=== PATIENT | female | born 1995 | race Caucasian/White ===

== ENCOUNTER 2022-09-08 22:46 | Inpatient (IN) | payer MEDICAID, SELFPAY ==
[2022-09-08 22:23] VITALS: BP 142/93; PULSE 106; TEMP 36.8
[2022-09-08 22:34] VITALS: RESP 16; BMI 34.2
[2022-09-08 22:37] VITALS: RESP 16
[2022-09-08 22:38] VITALS: BP 144/95; PULSE 110
[2022-09-08 22:55] LABS: Basophils # 0.1 10^3/uL (0.0-0.1); Basophils % 0.3 %; Eosinophils # 0.1 10^3/uL (0.0-0.8); Eosinophils % 0.5 %; Hematocrit 36.5 % (37.0-47.0); Hemoglobin 12.2 g/dL (11.5-15.3); Lymphocytes # 2.5 10^3/uL (0.8-4.8); Lymphocytes % 16.8 %; Mean Corpuscular HGB Conc 33.4 g/dL (30.0-36.0); Mean Corpuscular Hemoglobin 29.8 pg (28.0-34.0); Mean Platelet Volume 9.5 fL (7.4-10.4); Monocytes # 1.2 10^3/uL (0.2-0.9); Monocytes % 7.9 %; Neutrophils # 10.93 10^3/uL (1.8-7.7); Neutrophils % 74.2 %; Nucleated Red Blood Cells % 0 %; Platelet Count 488 10^3/cmm (130-400); Red Cell Distribution Width 12.5 % (12.1-15.1); White Blood Count 14.7 10^3/uL (4.0-10.0)
--- NOTE | 2022-09-08 23:52 | PM.OPHPUD ---
Labor & Delivery H&P Update Date of Procedure: September 08, 2022 Date H&P Performed: 09/08/22 Admission Diagnosis:
--- NOTE | 2022-09-08 23:53 | PM.DELIVERY ---
Delivery Note: Date of delivery: September 08, 2022 Pre-Delivery Course: The patient had routine care at [facility]. There were no complications during the . Delivery: This is a 27-year-old G3, P2 at 40 weeks 4 days gestation who presented to labor and delivery in active labor. I received an initial call at 4 stating the patient had arrived complaining of contractions every 4 minutes with a cervical exam of 5/70/ BBOW. The patient did not want any unnecessary medical interventions, however I recommended IV placement in case of emergency. She was also known to be GBS positive and stated she did not want to have antibiotics. This was news to me. I told nursing that I strongly urged her to receive the antibiotics for babies benefit. She ended up progressing rapidly and did not have any time to even receive the antibiotics because by 2308 she was complete and pushing. She had already delivered and the infant was on mother's chest with the cord intact by the time I arrived. Apgars were 7 and 8. The cord was clamped and cut. The placenta was delivered grossly intact and normal to inspection. There were no vaginal lacerations. Rupture of membranes was less than 5 minutes prior to delivery with clear fluid. Mother and infant were doing well after delivery. Coding Level of Care Code Acute Code for Chg Fwd
[2022-09-09] VITALS (14 sets, daily range): BP systolic 122–145; BP diastolic 58–88; PULSE 81–101; RESP 15–18; TEMP 36.7–37.3; O2SAT 98
--- NOTE | 2022-09-09 02:47 | PC.NURSE ---
Pt refused Pitocin after delivery of placenta.
[2022-09-09 11:27] LABS: Hematocrit 32.9 % (37.0-47.0); Hemoglobin 11.2 g/dL (11.5-15.3); Mean Corpuscular Hemoglobin 30.4 pg (28.0-34.0); Mean Corpuscular Volume 89.4 fl (81-99); Mean Platelet Volume 9.6 fL (7.4-10.4); Platelet Count 467 10^3/cmm (130-400); Red Blood Count 3.68 10^6/uL (4.1-5.3); Red Cell Distribution Width 12.6 % (12.1-15.1); White Blood Count 14.2 10^3/uL (4.0-10.0)
--- NOTE | 2022-09-09 17:40 | PM.PN ---
Subjective Subjective: The patient is doing well, she has average bleeding, she denies any significant pain. Vitals/I&O/Wt Last Vital Signs Temp 99.2 F 09/09/22 16:00 Pulse 101 H 09/09/22 16:00 Resp 15 09/09/22 16:00 BP 137/88 09/09/22 16:00 O2 Del Method Room Air 09/08/22 22:36 Weight last 48 hrs Weight 79.379 kg Physical Exam Narrative: Alert and oriented sitting up in bed, heart regular rate and rhythm, lungs clear to auscultation bilaterally, abdomen is soft and nontender, fundus is firm, extremities have no calf tenderness and no edema Data 09/09/22 11:00 A&P Assessment and plan (1) Normal spontaneous vaginal delivery: day #1 doing well. Patient's lost insurance coverage so he is no longer able to get his vasectomy. She does desire to therefore go ahead with for her tubal ligation. This has been planned for tomorrow morning Attestations Medical Necessity Statement*: Routine care Coding Level of Care Code Acute Code for Chg Fwd Diagnoses Normal spontaneous vaginal delivery O80
[2022-09-10 04:04] VITALS: BP 107/68; PULSE 90; RESP 17; TEMP 36.7; O2SAT 97
[2022-09-10] MEDS: lactated ringers 1,000 ML 999 ML IV (06:15)
[2022-09-10] MEDS: ceFAZolin 2,000 MG in sodium chloride 0.9% (plus) 50 ML 100 MG IV (06:15)
[2022-09-10] MEDS: famotidine 20 mg/2 mL INJ IVP (06:37)
[2022-09-10] MEDS: citric acid-sodium citrate 30 mL UDC PO (06:37)
[2022-09-10] MEDS: metoclopramide 5 mg/mL SDV 2 mL 10 MG IVP (06:38)
[2022-09-10] MEDS: lidocaine-epi 1% 20 mL INJ INJECTION (06:38)
--- NOTE | 2022-09-10 07:22 | ANES.PREANE2 ---
Pre-Anesthetic Assessment Height/Weight: Height 1.52 m Weight 79.379 kg Temp Pulse Resp BP Pulse Ox O2 Del Method 98.1 F 90 17 107/68 97 Room Air 09/10/22 04:04 09/10/22 04:04 09/10/22 04:04 09/10/22 04:04 09/10/22 04:04 09/10/22 04:04 Preop Diagnosis: Undesired fertility Operation Date: 09/10/22 07:10 Proposed Procedures p Post Bilateral Tubal Ligation(Bilateral) - Lucille Garcia MD Was Beta Rasta taken within 24 hours: N/A Was Clonidine taken within 24 hours: N/A Last intake: Intake Last Liquid Date 09/09/22 Last Liquid Time 22:00 Last Solid Date 09/09/22 Last Solid Time 22:00 Social No alcohol and No tobacco Exam alert, oriented x 3, clear to auscultation bilaterally and regular rate & rhythm Airway Submandibular: within normal limits Cervical ROM: within normal limits Mallampati: Class II Dentition: full History/ROS No significant history except as noted and No significant complaints Pulmonary None reported CV/HEM None reported None reported Hepatic None reported GI None reported Metabolic None reported Musc/skel None reported Neuropsych None reported Anesthetic Plan ASA status: 2 Anesthesia: Anesthesia Evaluation and General Risk of > 500 ml blood loss (7ml/kg in children): No Medications/Allergies Home Medications Medication Instructions Recorded Confirmed Last Taken Type prenat.vits,gladys,fyt-pphl-zfyqz 1 tab PO DAILY 09/08/22 09/08/22 09/08/22 History Allergies Allergy/AdvReac Type Severity Reaction Status Date / Time No Known Allergies Allergy Verified 09/08/22 22:41 Current Medications Generic Name Dose Route Start Last Admin Trade Name Freq PRN Reason Stop Dose Admin Docusate Sodium 100 mg 09/09/22 09:00 09/09/22 21:14 Docusate Sodium 100 Mg Capsule PO Not Given BID ELENO Ibuprofen 800 mg 09/09/22 09:00 09/09/22 21:14 Ibuprofen 800 Mg Tablet PO Not Given TID ELENO Multivit/Folic Acid/Iron 1 cap 09/09/22 09:00 09/09/22 09:57 Vitamin Capsule PO Not Given DAILY ELENO PFSH Anesthesia Female Reproductive History : 3 Data Anesthesia 09/09/22 11:00 Short CBC 04/11/23 04/12/23 Range/Units 22:40 11:00 WBC 14.7 H 14.2 H (4.0-10.0) 10^3/uL Hgb 12.2 11.2 L (11.5-15.3) g/dL Hct 36.5 L 32.9 L (37.0-47.0) % MCV 89.0 89.4 (81-99) fl Plt Count 488 H 467 H (130-400) 10^3/cmm Neut % (Auto) 74.2 % Neut # (Auto) 10.93 H (1.8-7.7) 10^3/uL Cardiac Studies: No Data to Display
--- NOTE | 2022-09-10 07:30 | PC.NURSE ---
Shyanne Cardenas, RN answered pt call light and pt reports she wants to cancel her tubal ligation. Dr. Garcia talked with pt and pt is going to get a vasectomy.
[2022-09-10 10:00] VITALS: BP 125/76; PULSE 90; RESP 17; TEMP 36.8; O2SAT 97
[2022-09-10 16:00] VITALS: BP 144/80; PULSE 77; RESP 16; TEMP 36.4; O2SAT 96
--- NOTE | 2022-09-10 16:40 | PM.DCS ---
Discharge Providers Date of Admission: 09/08/22 22:46 Date of Discharge: September 10, 2022 Attending Provider at Admission: Lucille Garcia MD Attending Provider at Discharge: Lucille Garcia MD Primary Care Provider: Lucille Garcia MD Diagnoses at Discharge Discharge Diagnosis (1) Normal spontaneous vaginal delivery: Status: Acute Reason for Visit Reason for Visit: Contractions Hospital Course Hospital Course This is a 27-year-old G3 now P3 who presented at 40 weeks 4 days gestation in active labor. She had a normal spontaneous vaginal delivery of a viable male . Mother was known to be GBS positive but she did not wish to receive antibiotic prophylaxis. Additionally she did not have time to receive them as she delivered within about 30 minutes of presentation. she did well she was ambulating, tolerating a regular diet, had decreased vaginal bleeding and was anxious to get home. She desired to be discharged immediately after the 's 48-hour jack. Physical Exam Narrative: Alert and oriented, sitting up in bed, heart regular rate and rhythm, lungs clear to auscultation bilaterally, abdomen is soft and nontender, fundus is firm, extremities have no calf tenderness and no edema Discharge Data Studies Completed and Pending Laboratory Results WBC 14.2 10^3/uL (4.0-10.0) H 09/09/22 11:00 RBC 3.68 10^6/uL (4.1-5.3) L 09/09/22 11:00 Hgb 11.2 g/dL (11.5-15.3) L 09/09/22 11:00 Hct 32.9 % (37.0-47.0) L 09/09/22 11:00 MCV 89.4 fl (81-99) 09/09/22 11:00 MCH 30.4 pg (28.0-34.0) 09/09/22 11:00 MCHC 34.0 g/dL (30.0-36.0) 09/09/22 11:00 RDW 12.6 % (12.1-15.1) 09/09/22 11:00 Plt Count 467 10^3/cmm (130-400) H 09/09/22 11:00 MPV 9.6 fL (7.4-10.4) 09/09/22 11:00 Neut % (Auto) 74.2 % 04/11/23 22:40 Lymph % (Auto) 16.8 % 09/08/22 22:40 [place] % (Auto) 7.9 % 09/08/22 22:40 Eos % (Auto) 0.5 % 09/08/22 22:40 Baso % (Auto) 0.3 % 09/08/22 22:40 Neut # (Auto) 10.93 10^3/uL (1.8-7.7) H 09/08/22 22:40 Lymph # (Auto) 2.5 10^3/uL (0.8-4.8) 09/08/22 22:40 [place] # (Auto) 1.2 10^3/uL (0.2-0.9) H 09/08/22 22:40 Eos # (Auto) 0.1 10^3/uL (0.0-0.8) 09/08/22 22:40 Baso # (Auto) 0.1 10^3/uL (0.0-0.1) 09/08/22 22:40 Nucleated RBC % (auto) 0 % 09/08/22 22:40 Nucleated RBCs # 0.0 /100WBC 09/08/22 22:40 Vitals Last Vital Signs Temp 98.3 F 09/10/22 10:00 Pulse 90 09/10/22 10:00 Resp 17 09/10/22 10:00 BP 125/76 09/10/22 10:00 Pulse Ox 97 09/10/22 10:00 O2 Del Method Room Air 09/10/22 10:00 Discharge Plan Discharge Patient Disposition: Home Prescriptions: Continued prenat.vits,gladys,[id number]-mohee Tablet 1 tab PO DAILY Discharge Orders: Discharge Order (Routine); Ordered 09/10/22 Ordered By: Lucille Garcia Referrals: Lucille Garcia MD [Primary Care Provider] - 1 month Discharge Diet: Usual diet Discharge Activity: Limit activity as instructed Patient Instructions: Opioid Safety Discharge Attestations Time Spent in Discharge Care*: less than 30 min Quality Metrics Clinical Quality Measures [ No reported AMI, CVA or VTE this stay] Coding Level of Care Code Acute Code for Chg Fwd Diagnoses Normal spontaneous vaginal delivery O80
[2022-09-10 23:06] VITALS: BP 132/91; PULSE 77; RESP 16; TEMP 36.8; O2SAT 96
== END 2022-09-10 23:22 | disposition home or self-care (01) | DRG 807 ==
LOC: OPOB 22:46 → OBGYN 22:46
PROVIDERS: Admitting Provider Family Medicine; PCP Family Medicine; Visit Provider Family Medicine
DX: O48.0 Post-term pregnancy (principal); Z37.0 Single live birth; O99.824 Streptococcus B carrier state complicating childbirth; Z3A.40 40 weeks gestation of pregnancy
CPT/HCPCS: 36415; 59025; 59409; 85025; 85027; 99211; J0690; J1100; J2590; J2704; J2765; J3010; J3490; J7120